=== PATIENT | male | born 1975 | race Caucasian/White ===

== ENCOUNTER 2020-10-01 12:50 | Emergency (ER) | payer OTHER ==
[~2020-10-01] VITALS: Ht 177.8 cm; Wt 95.3 kg
[2020-10-01] MEDS ORDERED: SODIUM CHLORIDE 0.9% 1,000 ML IV ONE ×2 (13:30)
[2020-10-01 13:50] LABS: Basophils # (auto) 0 10 ^3/uL (0-0.2); Basophils % (auto) 0.6 % (0.0-2.0); Eosinophils # (auto) 0.1 10 ^3/uL (0-0.8); Eosinophils % (auto) 1.5 % (0.0-7.0); Hematocrit 45.2 % (41.0-53.0); Lymphocytes # (auto) 3.6 10 ^3/uL (0.4-5.4); Lymphocytes % (auto) 42.5 % (10.0-50.0); Mean Corpuscular Hemoglobin 27.6 pg (28.0-32.0); Mean Corpuscular Hgb Conc. 33.3 g/dL (32.0-36.0); Mean Corpuscular Volume 82.9 fL (80.0-100.0); Monocytes # (auto) 0.7 10 ^3/uL (0-1.3); Monocytes % (auto) 8.2 % (0.0-12.0); Neutrophils % (auto) 47.2 % (37.0-80.0); Nucleated Red Blood Cells % 0.1 %; Red Blood Cells 5.45 10^6/uL (4.5-5.90); Red Cell Distribution Width 13.4 % (11.8-14.3); White Blood Cell 8.4 10^3/uL (4.4-10.8)
[2020-10-01 13:58] VITALS: BP 132/89
[2020-10-01 14:06] LABS: Calcium 9.1 mg/dL (8.5-10.1); Chloride 105 mmol/L (98-107); Potassium 3.2 mmol/L (3.5-5.1); Sodium 139 mmol/L (136-145)
[2020-10-01 14:14] LABS: Alanine Aminotransferase 31 U/L (16-61); Albumin 4.2 g/dL (3.4-5.0); Alkaline Phosphatase 59 U/L (45-117); Anion Gap 12 (5-15); Aspartate Aminotransferase 31 U/L (15-37); BUN/Creatinine Ratio 11.3; Bilirubin, Total 1.1 mg/dL (0.2-1.0); Blood Urea Nitrogen 11 mg/dL (7-18); Carbon Dioxide 22 mmol/L (21-32); GFR African American 109 mL/min; GFR Non-African American 90 mL/min; Glucose 112 mg/dL (74-106); Magnesium 2.4 mg/dL (1.6-2.6); Total Protein 7.7 g/dL (6.4-8.2)
[2020-10-01 14:25] LABS: INR 0.96 (0.9-1.15); Partial Thromboplastin Time 24.5 sec (23.0-31.2)
[2020-10-01 16:41] LABS: Urine Bacteria NONE SEEN /hpf (None Seen); Urine Blood Negative /uL (Negative); Urine Mucus FEW (None Seen); Urine Specific Gravity 1.011 (1.001-1.035)
[2020-10-01 16:44] LABS: Urine WBC 1 /hpf (0 - 3)
[2020-10-01] MEDS ORDERED: POTASSIUM EFFERVESENT TAB 25 MEQ PO ONE (17:00)
== END 2020-10-01 17:18 | disposition home or self-care (01) ==
LOC: ER 12:50 → EDBD 12:50 → ER 17:18
DX: R55 Syncope and collapse (principal); R42 Dizziness and giddiness; E87.6 Hypokalemia; Z88.1 Allergy status to other antibiotic agents
CPT/HCPCS: 36415; 70450; 71045; 80053; 81001; 83735; 83880; 84443; 84484; 85025; 85610; 85730; 93005; 96360; 96361